=== PATIENT | male | born 2000 | race Caucasian/White ===

== ENCOUNTER 2019-01-05 13:48 | Emergency (ER) | payer OTHER ==
[2019-01-05 14:09] VITALS: BP 132/71; PULSE 76; TEMP 98.6; BMI 26.9
--- NOTE | 2019-01-05 14:38 | PDOC ---
History of Present Illness - General Chief Complaint: Cold Symptoms Stated Complaint: LT SIDE THROAT PAIN Time Seen by Provider: 01/05/19 14:14 History Source: Patient Exam Limitations: No Limitations - History of Present Illness Initial Comments: 01/05/19 patient is here with concerns about swelling to his left neck, stiffness to his neck, and intermittent fevers. Denies earache sore throat pain coughing or sneezing although states suffers from seasonal ALLERGIES. Does admit to having postnasal drainage. Has taken no medications for relief of any of the symptoms but an Advil yesterday which he reports having some minor success with symptom resolved. Patient states after an Internet search was concerned that swollen lymph node was blocking his carotid artery giving him some head congestion and headache pain. The pain patient reports is frontal and ethmoid sinus pain that comes and goes. Has not taken his temperature, does not report any rashes, any neurologic changes other than some headache pain that appears to be primarily sinus related. Timing/Duration: reports: getting worse Severity: reports: mild, moderate Associated Symptoms: reports: fever/chills, headache, nasal congestion. denies : facial pain, sore throat, wheezing Past History - Travel Traveled outside of the country in the last 30 days: No Close contact w/someone who was outside of country & ill: No - Past Medical History Allergies/Adverse Reactions: Allergies Allergy/AdvReac Type Severity Reaction Status Date / Time No Known Allergies Allergy Verified 01/05/19 14:09 Home Medications: Ambulatory Orders Cetirizine HCl/Pseudoephedrine [Allergy+Congestion Relf-D Tab] 1 each PO DAILY # 30 tab 01/05/19 COPD: No Dialysis: No HTN: No - Immunization History Immunization Up to Date: No - Suicide/Smoking/Psychosocial Hx Smoking History: Never smoked Have you smoked in the past 12 months: No Information on smoking cessation initiated: No Hx Alcohol Use: No Drug/Substance Use Hx: No Review of Systems - Review of Systems Able to Perform ROS?: Yes Is the patient limited Turkmen proficient: Yes Constitutional: Yes: Symptoms Reported, See HPI, Chills, Fever, Malaise HEENTM: Yes: Symptoms Reported, See HPI, Nose Congestion. No: Difficulty Swallowing Respiratory: Yes: See HPI. No: Symptoms reported, Cough Neurological: Yes: See HPI, Headache (frontal and ethmoid sinus primarily). No : Symptoms reported All Other Systems: Reviewed and Negative *Physical Exam - Vital Signs Last Vital Signs Temp Pulse Resp BP Pulse Ox 98.6 F 76 18 132/71 99 01/05/19 14:06 01/05/19 14:06 01/05/19 14:06 01/05/19 14:06 01/05/19 14:06 - Physical Exam General Appearance: Yes: Nourished, Appropriately Dressed. No: Apparent Distress HEENT: positive: MONSE, Nasal Congestion, Rhinorrhea, Sinus Tenderness (mild to frontal and ethmoid sinus), Other (posterior pharynx with cobblestone appearance with posterior sinus drainage- no redness/ exudate). negative: TMs Normal Neck: positive: Tender, Supple, Lymphadenopathy (L) (enlarged with slight tenderness to anterior cervical chain- mobile, non nodular. Thyroid with no tenderness or enlargement ). negative: Lymphadenopathy (R) Respiratory/Chest: positive: Lungs Clear, Normal Breath Sounds Cardiovascular: positive: Regular Rhythm, Regular Rate Gastrointestinal/Abdominal: positive: Soft. negative: Tender Musculoskeletal: positive: Normal Inspection. negative: CVA Tenderness Extremity: positive: Normal Capillary Refill Integumentary: positive: Warm, Pale, Clammy Neurologic: positive: emr analyst II-XII NML intact, Fully Oriented, Alert, Normal Mood/ Affect Progress Note - Progress Note Progress Note: ALLERGIC rhinitis with possible slight viral illness associated. We will treat with antihistamines with decongestant and encouraged patient to utilize conservative measures for sinus drainage. Encouraged to also stop manipulating left neck to allow lymphadenopathy to resolve. Also instructed that if lymph node remains enlarged or tender would recommend follow-up with ear nose and throat doctor for more thorough evaluation. *DC/Admit/Observation/Transfer Diagnosis at time of Disposition: Allergic rhinitis Qualifiers: Allergic rhinitis trigger: unspecified Allergic rhinitis seasonality: unspecified Qualified Code(s): J30.9 - Allergic rhinitis, unspecified - Discharge Dispostion Disposition: HOME Condition at time of disposition: Stable Decision to Admit order: No - Prescriptions Prescriptions: Cetirizine HCl/Pseudoephedrine [Allergy+Congestion Relf-D Tab] 1 each PO DAILY # 30 tab - Referrals - Patient Instructions Printed Discharge Instructions: DI for Allergic Rhinitis, DI for Lymphadenopathy Additional Instructions: Rest, drink lots of fluids: Teas, water, soups Saltwater gargles. Consider humidifier in room at night Steamy showers/seem to face break up mucus Avoid contact with allergens, exposure to pollens, close windows on a windy day Lots of handwashing and good hygiene Continue [id number] medications for symptomatic relief- may use allergic eyedrops for itching I Continue antihistamines daily until pollen season is over; Zyrtec, Claritin, Dinora during the daytime and Benadryl at nighttime as will make sleepy Tylenol or Motrin for fever and pain Followup with private physician in one to 2 days as needed Consider following up with an rat farmer/combat rifle crewmember for skin testing and possible allergy shots Return to emergency department for worsened symptoms, fevers, dehydration - Post Discharge Activity
== END 2019-01-05 14:50 | disposition home or self-care (01) ==
LOC: JERFT 13:48
DX: J30.9 Allergic rhinitis, unspecified (principal); R59.0 Localized enlarged lymph nodes
CPT/HCPCS: 99281-25